=== PATIENT | male | born 1980 | race Caucasian/White ===

== ENCOUNTER 2025-02-18 20:50 | Inpatient (IN) | payer MEDICARE ==
[2025-02-18 21:48] VITALS: BMI 20.8
[2025-02-18] MEDS ORDERED: Acetaminophen 325 MG TAB PO PRN (22:00)
[2025-02-18] MEDS: Metoclopramide HCl 10 MG (2 mL) VIAL IVP SCH (22:13)
[2025-02-18] MEDS: Simethicone Chewable 80 MG TAB PO SCH (22:13)
[2025-02-19] MEDS: Potassium Bicarbonate/Cit Ac 20 MEQ TAB PO SCH (00:31)
[2025-02-19] MEDS: Tacrolimus 0.5 MG CAP PO SCH ×2 (00:46→09:11)
[2025-02-19] MEDS: Dicyclomine 10 MG CAP PO PRN (02:50)
[2025-02-19] MEDS: Ondansetron PF 4 MG/2 ML Vial IVP PRN (03:10)
[2025-02-19] MEDS: Metoclopramide HCl 10 MG (2 mL) VIAL IVP PRN (05:33)
[2025-02-19] MEDS: Simethicone Chewable 80 MG TAB PO PRN (05:36)
[2025-02-19 05:51] LABS: #Basophils 0.03 10x3/uL (0.0-0.2); #Eosinophils Less than 0.03 10x3/uL (0.0-0.5); #Monocytes 1.60 10x3/uL (0.0-1.1); #Neutrophils 14.34 10x3/uL (1.5-8.4); %Basophils 0.2 % (0.0-2.0); %Eosinophils 0.1 % (0.0-6.0); %Lymphocytes 9.5 % (18.0-47.0); %Monocytes 9.0 % (0.0-10.0); %Neutrophils 80.7 % (40.0-75.0); Hematocrit 40.1 % (38.8-50.0); Hemoglobin 13.2 g/dL (13.5-17.5); Mean Corpuscular Hemoglobin 27.1 pg (27.0-33.0); Mean Corpuscular Volume 82.3 fL (81.2-95.1); Platelet Count 356 10x3/uL (150-450); Red Blood Cell (RBC) Count 4.87 10x6/uL (4.32-5.72); White Blood Cell (WBC) Count 17.77 10x3/uL (3.5-10.5)
[2025-02-19 06:07] LABS: Anion Gap 15 mmol/L (10-20); BUN (Urea Nitrogen) 14 mg/dL (8.9-20.6); Calc. Creatinine Clearance 67 mL/min (70-130); Calcium 9.4 mg/dL (7.8-10.44); Carbon Dioxide 22 mmol/L (22-29); Chloride 107 mmol/L (98-107); Glucose 132 mg/dL (70-105); Magnesium 1.6 mg/dL (1.6-2.6); Potassium 3.6 mmol/L (3.5-5.1); Sodium 140 mmol/L (136-145)
[2025-02-19] MEDS ORDERED: GoLYTELY 4,000 ml Bottle PO SCH (08:15)
[2025-02-19] MEDS: NIFEdipine XL 60 MG ER.TAB PO SCH (09:08)
[2025-02-19] MEDS: predniSONE 10 MG TAB PO SCH (09:10)
[2025-02-19] MEDS: Magnesium Oxide 400 MG TAB PO SCH (09:10)
[2025-02-19] MEDS: Famotidine 20 MG TAB PO SCH (09:10)
[2025-02-19] MEDS: metroNIDAZOLE 500 MG TAB PO SCH (15:25)
[2025-02-20 05:38] LABS: #Basophils 0.04 10x3/uL (0.0-0.2); #Eosinophils 0.03 10x3/uL (0.0-0.5); #Monocytes 2.40 10x3/uL (0.0-1.1); #Neutrophils 19.54 10x3/uL (1.5-8.4); %Basophils 0.2 % (0.0-2.0); %Eosinophils 0.1 % (0.0-6.0); %Lymphocytes 6.4 % (18.0-47.0); %Monocytes 10.1 % (0.0-10.0); %Neutrophils 82.4 % (40.0-75.0); Hematocrit 44.5 % (38.8-50.0); Hemoglobin 14.8 g/dL (13.5-17.5); Mean Corpuscular Hemoglobin 27.2 pg (27.0-33.0); Mean Corpuscular Volume 81.7 fL (81.2-95.1); Platelet Count 408 10x3/uL (150-450); Red Blood Cell (RBC) Count 5.45 10x6/uL (4.32-5.72); White Blood Cell (WBC) Count 23.73 10x3/uL (3.5-10.5)
[2025-02-20 05:53] LABS: Anion Gap 16 mmol/L (10-20); BUN (Urea Nitrogen) 13 mg/dL (8.9-20.6); Calc. Creatinine Clearance 66 mL/min (70-130); Calcium 9.7 mg/dL (7.8-10.44); Carbon Dioxide 25 mmol/L (22-29); Chloride 101 mmol/L (98-107); Glucose 157 mg/dL (70-105); Magnesium 1.5 mg/dL (1.6-2.6); Potassium 3.1 mmol/L (3.5-5.1); Sodium 139 mmol/L (136-145)
[2025-02-20 06:14] LABS: ALT (SGPT) 24 U/L (Less than 45); AST (SGOT) 22 U/L (11-34); Albumin 4.5 g/dL (3.1-4.5); Alkaline Phosphatase 71 U/L (40-110); Anion Gap 17 mmol/L (10-20); BUN (Urea Nitrogen) 13 mg/dL (8.9-20.6); Bilirubin, Total 0.7 mg/dL (0.3-1.2); Calc. Creatinine Clearance 65 mL/min (70-130); Calcium 9.7 mg/dL (7.8-10.44); Carbon Dioxide 23 mmol/L (22-29); Chloride 100 mmol/L (98-107); Globulin 3.4 g/dL (2.4-3.5); Glucose 157 mg/dL (70-105); Potassium 3.0 mmol/L (3.5-5.1); Sodium 137 mmol/L (136-145)
[2025-02-20] MEDS ORDERED: Potassium Chloride 20 MEQ in Premix 1 BAG IVPB SCH (08:30)
[2025-02-20] MEDS: Magnesium 2 GM/50 ML(in water) 2 GM in Premix 1 BAG IVPB SCH (09:45)
[2025-02-20] MEDS: HYDROcodone/Acetaminophen 10/325 mg Tablet PO SCH (09:49)
[2025-02-20] MEDS: Potassium Chloride 20 MEQ in Premix 1 BAG IVPB SCH (11:03)
[2025-02-20 12:22] VITALS: TEMP 98.4
[2025-02-20 12:34] LABS: Glucose, Urine (Dipstick) Normal (Negative); Leukocyte Negative (Negative); Protein, Urine (Dipstick) 30 mg/dl (Neg-Trace); Specific Gravity, Urine 1.015 (1.005-1.030)
[2025-02-20 12:53] LABS: Bacteria/HPF Rare-Few HPF (None Seen); CAUTI Indications for Culture Dysuria,urgency,freq; RBC/HPF 0-3 HPF (0-3); WBC/HPF None Seen HPF (0-3)
[2025-02-20 12:54] LABS: Urine Culture Reflex No No
[2025-02-20] MEDS ORDERED: Iopamidol 300 61% 100 ML VIAL FS ONE (13:19)
[2025-02-20 15:40] LABS: Potassium 4.0 mmol/L (3.5-5.1)
[2025-02-20 17:20] VITALS: BP 176/99
== END 2025-02-20 18:08 | disposition short-term general hospital (02) | DRG 393 ==
LOC: CSHTELE 20:50
PROVIDERS: ADMIT Internal Medicine; ATTEND Physician Assistant
DX: K55.9 Vascular disorder of intestine, unspecified (principal); K56.2 Volvulus; E87.20 Acidosis, unspecified; Q60.0 Renal agenesis, unilateral; Z94.0 Kidney transplant status; N17.9 Acute kidney failure, unspecified; T86.12 Kidney transplant failure; R10.9 Unspecified abdominal pain; K76.89 Other specified diseases of liver; N18.30 Chronic kidney disease, stage 3 unspecified; I12.9 Hypertensive chronic kidney disease with stage 1 through stage 4 chronic kidney disease, or unspecified chronic kidney disease; K21.9 Gastro-esophageal reflux disease without esophagitis; I34.0 Nonrheumatic mitral (valve) insufficiency; D72.829 Elevated white blood cell count, unspecified; E87.6 Hypokalemia; R00.1 Bradycardia, unspecified; Z79.60 Long term (current) use of unspecified immunomodulators and immunosuppressants; Z98.890 Other specified postprocedural states; Z83.3 Family history of diabetes mellitus; Z79.899 Other long term (current) drug therapy; Z87.891 Personal history of nicotine dependence; E86.0 Dehydration; K59.00 Constipation, unspecified; Y83.0 Surgical operation with transplant of whole organ as the cause of abnormal reaction of the patient, or of later complication, without mention of misadventure at the time of the procedure
CPT/HCPCS: 36415; 74177; 80048; 80197; 81001; 83605; 83735; 84100; 84443; 85025; 86141; 94760; J2270; J2405; J2543; J2765; J3010; J3475; J3480; J7030; J7120; J7507; J7512; J7517; Q9967